=== PATIENT | male | born 1965 | race Hispanic/Latino ===

== ENCOUNTER 2017-09-06 09:50 | Day surgery (SDC) | payer BC ==
[2017-08-30 13:20] VITALS: BMI 27.3
[2017-09-06 10:54] LABS: BASO # 0.06 K/mm3 (0.0-2.0); BASO % 0.8 % (0.0-3.0); EOS # 0.2 (0.0-0.7); EOS % 2.8 % (1.5-5.0); GRAN # 5.26 (1.4-6.5); GRAN % 68.1 % (50.0-68.0); LYMPH # 1.7 (1.2-3.4); LYMPH % 22.5 % (22.0-35.0); MEAN CELL VOLUME 89.7 fl (80.0-105.0); MEAN CORPUSCULAR HEMOGLOBIN 32.1 pg (25.0-35.0); MEAN CORPUSCULAR HGB CONC 35.7 g/dl (31.0-37.0); MEAN PLATELET VOLUME 10.9 fl (7.0-11.0); MONO # 0.5 (0.1-0.6); MONO % 5.8 % (1.0-6.0); RED CELL DISTRIBUTION WIDTH 12.8 % (11.5-14.5); WHITE BLOOD COUNT 7.7 10^3/ul (4.5-11.0)
[2017-09-06 11:03] LABS: INR 1.06 (0.93-1.08); PARTIAL THROMBOPLASTIN TIME 27.9 Seconds (23.7-30.8)
[2017-09-06 11:10] LABS: ALB/GLOB RATIO 1.7 (1.1-1.8); ALKALINE PHOSPHATASE 115 U/L (38-126); ALT/SGPT 41 U/L (7-56); AMYLASE 82 U/L (35-125); AST/SGOT 29 U/L (17-59); BILIRUBIN,TOTAL 0.9 mg/dL (0.2-1.3); BLOOD UREA NITROGEN 11 mg/dL (7-21); CALCIUM 9.3 mg/dL (8.4-10.5); CARBON DIOXIDE 23 mmol/L (21-33); CHLORIDE 106 mmol/L (98-107); GFR AFRICAN-AMERICAN > 60; GLUCOSE,RANDOM 102 mg/dL (70-110); LIPASE 124 U/L (23-300); POTASSIUM 3.9 mmol/L (3.6-5.0); SODIUM 142 mmol/L (132-148); TOTAL PROTEIN 7.5 g/dL (5.8-8.3)
[2017-09-06] MEDS ORDERED: Propofol 10 mg/ml Inj (20 ML) ONE ×2 (12:33→13:16)
[2017-09-06] MEDS ORDERED: Midazolam 2 MG/2 ML VIAL ONE (12:33)
[2017-09-06] MEDS ORDERED: Phenylephrine 10 mg/ml Inj ONE (13:07)
[2017-09-06] MEDS ORDERED: Sodium Chloride 0.9% 1,000 ML IV SCH (13:45)
[2017-09-06 14:25] VITALS: BP 119/62; PULSE 76; RESP 18; TEMP 97.8; O2SAT 99
== END 2017-09-06 15:15 | disposition home or self-care (01) ==
LOC: ENDO 09:50
PROVIDERS: ATTEND Internal Medicine Gastroenterology
DX: K29.50 Unspecified chronic gastritis without bleeding (principal); K64.8 Other hemorrhoids; Z85.030 Personal history of malignant carcinoid tumor of large intestine; Z80.0 Family history of malignant neoplasm of digestive organs
CPT/HCPCS: 36415; 43237; 43239; 45330; 80053; 82150; 82977; 83690; 85025; 85610; 85730; 88305; 88342; J2250; J2370; J2704; J3010; J7030; J7040 ×2

== ENCOUNTER 2017-09-26 07:29 | Inpatient (IN) | payer BC ==
[2017-08-30 13:20] VITALS: BMI 27.3
[2017-09-26 08:06] LABS: BASO # 0.06 K/mm3 (0.0-2.0); BASO % 0.8 % (0.0-3.0); EOS # 0.4 (0.0-0.7); GRAN # 4.65 (1.4-6.5); HEMATOCRIT 43.8 % (42.0-52.0); LYMPH # 2.2 (1.2-3.4); MEAN CELL VOLUME 90.3 fl (80.0-105.0); MEAN CORPUSCULAR HEMOGLOBIN 32.6 pg (25.0-35.0); MEAN CORPUSCULAR HGB CONC 36.1 g/dl (31.0-37.0); MEAN PLATELET VOLUME 9.9 fl (7.0-11.0); MONO # 0.6 (0.1-0.6); MONO % 7.2 % (1.0-6.0); RED CELL DISTRIBUTION WIDTH 12.8 % (11.5-14.5); WHITE BLOOD COUNT 7.9 10^3/ul (4.5-11.0)
[2017-09-26 08:14] LABS: BLOOD UREA NITROGEN 11 mg/dL (7-21); CALCIUM 9.8 mg/dL (8.4-10.5); CARBON DIOXIDE 22 mmol/L (21-33); CHLORIDE 107 mmol/L (98-107); GFR AFRICAN-AMERICAN > 60; GLUCOSE,RANDOM 100 mg/dL (70-110); POTASSIUM 4.5 mmol/L (3.6-5.0); SODIUM 143 mmol/L (132-148)
[2017-09-26 08:16] LABS: INR 1.16 (0.93-1.08); PARTIAL THROMBOPLASTIN TIME 29.2 Seconds (25.1-36.5)
[2017-09-26] MEDS ORDERED: Bupivacaine 0.5% Inj(30mL) ONE (10:35)
[2017-09-26] MEDS ORDERED: Propofol 10 mg/ml Inj (20 ML) ONE (10:36)
[2017-09-26] MEDS ORDERED: Midazolam 2 MG/2 ML VIAL ONE (10:37)
[2017-09-26] MEDS ORDERED: metroNIDAZOLE IV 500 mg/100 ml 500 MG/100 ML BAG ONE (11:21)
[2017-09-26] MEDS ORDERED: Sevoflurane - Inhalation Anesthetic Liq (250 ml) ONE (11:30)
[2017-09-26] MEDS ORDERED: Morphine 1 mg/ml preservative-free Inj(Duramorph) ONE (12:33)
[2017-09-26] MEDS ORDERED: Neostigmine Methylsulfate 3mg/3ml Syringe IV ONE (13:57)
[2017-09-26] MEDS ORDERED: Glycopyrrolate 0.2 mg/ml (2ml vial) ONE (13:57)
--- NOTE | 2017-09-26 14:51 | PCM.SURG1 ---
<Carlos Luna - Last Filed: 09/26/17 14:47> Surgeon's Initial Post Op Note - Surgeon's Notes Surgeon: Dr. Irving Subscription Crew Leader: Carlos Luna PGY2, Farhan PGY1 Type of Anesthesia: General Endo Pre-Operative Diagnosis: Sigmoid carcinoid Operative Findings: Tattooed sigmoid Post-Operative Diagnosis: Same Operation Performed: Hand assisted laparoscopic sigmoidectomy Specimen/Specimens Removed: sigmoid colon Estimated Blood Loss: EBL {In ML}: 50 Blood Products Given: N/A Drains Used: Rafael Post-Op Condition: Good Date of Surgery/Procedure: 09/26/17 Time of Surgery/Procedure: 14:51 <Wallace Irving - Last Filed: 09/29/17 00:01> Surgeon's Initial Post Op Note - Surgeon's Notes Operation Performed: Laparoscopic Low anterior rectosigmoid resection. Splenic Flexure mobilization Specimen/Specimens Removed: rectosigmoid
[2017-09-26] MEDS ORDERED: Lactated Ringer's 1,000 ML IV SCH (15:00)
[2017-09-26] MEDS: HYDROmorphone 0.5 mg/0.5 ml ISec IVP PRN ×2 (15:15→15:30)
[2017-09-26] MEDS ORDERED: HYDROmorphone 0.5 mg/0.5 ml ISec ONE (15:17)
[2017-09-26] MEDS ORDERED: cefTRIAXone 1 gm 1 GM/100 ML BAG IVPB SCH (17:00)
[2017-09-26] MEDS: Lactated Ringer's 1,000 ML IV SCH (18:19)
[2017-09-26] MEDS ORDERED: Pneumococcal 23-Valent Vaccine IM ONE (21:30)
[2017-09-26] MEDS ORDERED: Influenza Vaccine 60 mcg/0.5 mL SYR (4YR UP) IM ONE (21:30)
[2017-09-26] MEDS: HYDROmorphone 1 mg/ml ISec IVP PRN (22:48)
[2017-09-26] MEDS: cefTRIAXone 1 gm 1 GM/100 ML BAG IVPB SCH (23:21)
[2017-09-27] MEDS: HYDROmorphone 1 mg/ml ISec IVP PRN ×3 (05:18→22:05)
[2017-09-27 06:25] LABS: GRAN # 11.55 (1.4-6.5); HEMATOCRIT 35.8 % (42.0-52.0); LYMPH # 0.7 (1.2-3.4); LYMPH % 5.8 % (22.0-35.0); MEAN CELL VOLUME 89.9 fl (80.0-105.0); MEAN CORPUSCULAR HEMOGLOBIN 31.7 pg (25.0-35.0); MEAN CORPUSCULAR HGB CONC 35.2 g/dl (31.0-37.0); MEAN PLATELET VOLUME 9.8 fl (7.0-11.0); MONO # 0.4 (0.1-0.6); MONO % 3.2 % (1.0-6.0); PLATELET COUNT 258 10^3/uL (120.0-450.0); RED CELL DISTRIBUTION WIDTH 12.8 % (11.5-14.5); WHITE BLOOD COUNT 12.7 10^3/ul (4.5-11.0)
[2017-09-27 06:45] LABS: ALB/GLOB RATIO 1.6 (1.1-1.8); ALKALINE PHOSPHATASE 74 U/L (38-126); ALT/SGPT 50 U/L (7-56); AST/SGOT 26 U/L (17-59); BILIRUBIN,TOTAL 0.5 mg/dL (0.2-1.3); BLOOD UREA NITROGEN 11 mg/dL (7-21); CALCIUM 8.8 mg/dL (8.4-10.5); CARBON DIOXIDE 24 mmol/L (21-33); CHLORIDE 105 mmol/L (95-110); GFR AFRICAN-AMERICAN > 60; GLUCOSE,RANDOM 111 mg/dL (70-110); POTASSIUM 4.1 mmol/L (3.6-5.0); SODIUM 138 mmol/L (132-148); TOTAL PROTEIN 5.9 g/dL (5.8-8.3)
[2017-09-27 06:53] LABS: BAND 5 % (0-2); NEUTROPHIL 90 % (50.0-70.0); PLATELET ESTIMATE NORMAL (NORMAL)
--- NOTE | 2017-09-27 07:43 | CP.PCM.PN ---
Subjective - Date & Time of Evaluation Date of Evaluation: 09/27/17 Time of Evaluation: 07:37 - Subjective Subjective: Surgery PT s&e. underwent surgery yesterday. Tolerated it well. Denies F/C?N/V/D/CP/ SOB. Using IS. Objective - Vital Signs/Intake and Output Vital Signs (last 24 hours): Temp Pulse Resp BP Pulse Ox 98.6 F 95 H 16 115/67 100 09/26/17 21:14 09/26/17 21:14 09/26/17 21:14 09/26/17 21:14 09/26/17 16:32 Intake and Output: 09/27/17 09/27/17 06:59 18:59 Intake Total 0 Output Total 390 Balance -390 - Medications Medications: Current Medications Fentanyl (Fentanyl) 25 mcg IV Q5M PRN PRN Reason: Pain, moderate (4-7) Heparin Sodium (Porcine) (Heparin) 5,000 units SC Q12 ARIEL PRN Reason: Protocol Last Admin: 09/26/17 22:25 Dose: 5,000 units Hydromorphone HCl (Dilaudid) 1 mg IVP Q4H PRN PRN Reason: Pain, severe (8-10) Last Admin: 09/27/17 05:18 Dose: 1 mg Lactated Ringer's (Lactated Ringer's) 1,000 mls @ 100 mls/hr IV .Q10H [facility] Last Admin: 09/26/17 18:19 Dose: 100 mls/hr Ceftriaxone Sodium (Rocephin 1 Gram Ivpb) 1 gm in 100 mls @ 100 mls/hr IVPB 1130,2330 [facility] PRN Reason: Protocol Stop: 09/27/17 12:29 Last Admin: 09/26/17 23:21 Dose: 100 mls/hr Pantoprazole Sodium (Protonix Inj) 40 mg IVP DAILY [facility] Valsartan (Diovan) 320 mg PO DAILY [facility] - Labs Labs: 09/27/17 06:00 09/27/17 06:00 PT 12.8 SECONDS (9.4-12.5) H 09/26/17 08:00 INR 1.16 (0.93-1.08) H 09/26/17 08:00 APTT 29.2 Seconds (25.1-36.5) 09/26/17 08:00 - Constitutional Appears: No Acute Distress - Head Exam Head Exam: ATRAUMATIC, NORMAL INSPECTION, NORMOCEPHALIC - Eye Exam Eye Exam: EOMI, Normal appearance, PERRL Pupil Exam: NORMAL ACCOMODATION, PERRL - ENT Exam ENT Exam: Mucous Membranes Moist, Normal Exam - Neck Exam Neck Exam: Full ROM, Normal Inspection. absent: Lymphadenopathy - Respiratory Exam Respiratory Exam: Clear to Ausculation Bilateral, NORMAL BREATHING PATTERN - Cardiovascular Exam Cardiovascular Exam: REGULAR RHYTHM, +S1, +S2. absent: Murmur - GI/Abdominal Exam GI & Abdominal Exam: Soft, Tenderness, Normal Bowel Sounds. absent: Distended, Firm, Rigid, Hyperactive Bowel Sounds - Exam Exam: NORMAL INSPECTION (Villar in place. ) - Extremities Exam Extremities Exam: Full ROM, Normal Capillary Refill, Normal Inspection. absent : Joint Swelling, Pedal Edema - Back Exam Back Exam: NORMAL INSPECTION - Neurological Exam Neurological Exam: Alert, Awake, CN II-XII Intact, Normal Gait, Oriented x3 - Psychiatric Exam Psychiatric exam: Normal Affect, Normal Mood - Skin Skin Exam: Dry, Intact, Normal Color, Warm. absent: Erythema Assessment and Plan - Assessment and Plan (Free Text) Assessment: POD 1 s/p Hand assisted laparoscopic sigmoidectomy with anastomosis Villar 1L NGT 50cc -Advance diet to CLD -Monitor bowel function -IVF -NGT/ Villar DC -VS -Pain /nausea control -DVT ppx / GI ppx -Encourage ambulation /IS/ OOB CLAUDIA Irving
[2017-09-27] MEDS ORDERED: TraMADol/Apap 37.5/325 mg Tab PO PRN (07:45)
[2017-09-27] MEDS: cefTRIAXone 1 gm 1 GM/100 ML BAG IVPB SCH (12:21)
[2017-09-27] MEDS: Lactated Ringer's 1,000 ML IV SCH (12:24)
[2017-09-27] MEDS ORDERED: Sodium Chloride 0.9% 1,000 ML IV STA ×2 (13:39→17:01)
[2017-09-27 17:03] VITALS: RESP 20
--- NOTE | 2017-09-27 21:45 | CP.PCM.PN ---
Subjective - Date & Time of Evaluation Date of Evaluation: 09/27/17 Time of Evaluation: 21:44 - Subjective Subjective: F 16 Coude catheter was inserted without difficulty. Objective - Vital Signs/Intake and Output Vital Signs (last 24 hours): Temp Pulse Resp BP Pulse Ox 97.7 F 71 20 134/74 98 09/27/17 16:00 09/27/17 16:00 09/27/17 16:00 09/27/17 16:00 09/27/17 16:00 Intake and Output: 09/27/17 09/28/17 18:59 06:59 Intake Total 840 Output Total 30 Balance 840 -30 - Medications Medications: Current Medications Acetaminophen (Tylenol 325mg Tab) 650 mg PO Q4 PRN PRN Reason: Fever >100.4 F Heparin Sodium (Porcine) (Heparin) 5,000 units SC Q12 ARIEL PRN Reason: Protocol Last Admin: 09/27/17 09:23 Dose: 5,000 units Hydromorphone HCl (Dilaudid) 1 mg IVP Q4H PRN PRN Reason: Pain, severe (8-10) Last Admin: 09/27/17 15:58 Dose: 1 mg Lactated Ringer's (Lactated Ringer's) 1,000 mls @ 100 mls/hr IV .Q10H [facility] Last Admin: 09/27/17 12:24 Dose: 100 mls/hr Pantoprazole Sodium (Protonix Inj) 40 mg IVP DAILY [facility] Last Admin: 09/27/17 09:23 Dose: 40 mg Tramadol/Acetaminophen (Ultracet 37.5/325 Mg) 2 tab PO Q4H PRN PRN Reason: Pain, moderate (4-7) Valsartan (Diovan) 320 mg PO DAILY [facility] Last Admin: 09/27/17 09:23 Dose: 320 mg - Labs Labs: 09/27/17 06:00 09/27/17 06:00 PT 12.8 SECONDS (9.4-12.5) H 09/26/17 08:00 INR 1.16 (0.93-1.08) H 09/26/17 08:00 APTT 29.2 Seconds (25.1-36.5) 09/26/17 08:00
[2017-09-27 23:37] LABS: ALB/GLOB RATIO 1.5 (1.1-1.8); ALKALINE PHOSPHATASE 69 U/L (38-126); ALT/SGPT 47 U/L (7-56); AST/SGOT 27 U/L (17-59); BILIRUBIN,TOTAL 0.6 mg/dL (0.2-1.3); BLOOD UREA NITROGEN 14 mg/dL (7-21); CARBON DIOXIDE 28 mmol/L (21-33); CHLORIDE 105 mmol/L (95-110); GFR AFRICAN-AMERICAN > 60; GLUCOSE,RANDOM 102 mg/dL (70-110); HEMATOCRIT 33.3 % (42.0-52.0); MEAN CORPUSCULAR HEMOGLOBIN 32.2 pg (25.0-35.0); MEAN CORPUSCULAR HGB CONC 35.7 g/dl (31.0-37.0); MEAN PLATELET VOLUME 9.9 fl (7.0-11.0); POTASSIUM 4.1 mmol/L (3.6-5.0); RED CELL DISTRIBUTION WIDTH 13.3 % (11.5-14.5); SODIUM 139 mmol/L (132-148); TOTAL PROTEIN 5.9 g/dL (5.8-8.3); WHITE BLOOD COUNT 13.6 10^3/ul (4.5-11.0)
[2017-09-28 06:18] LABS: BASO # 0.02 K/mm3 (0.0-2.0); BASO % 0.2 % (0.0-3.0); EOS % 0.1 % (1.5-5.0); GRAN # 10.14 (1.4-6.5); GRAN % 76.2 % (50.0-68.0); HEMATOCRIT 35.3 % (42.0-52.0); LYMPH % 14.9 % (22.0-35.0); MEAN CORPUSCULAR HEMOGLOBIN 32.5 pg (25.0-35.0); MEAN CORPUSCULAR HGB CONC 35.7 g/dl (31.0-37.0); MEAN PLATELET VOLUME 10.5 fl (7.0-11.0); MONO # 1.2 (0.1-0.6); MONO % 8.6 % (1.0-6.0); RED CELL DISTRIBUTION WIDTH 13.2 % (11.5-14.5); WHITE BLOOD COUNT 13.3 10^3/ul (4.5-11.0)
--- NOTE | 2017-09-28 07:15 | OP ---
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 PROCEDURE PERFORMED: 1. Laparoscopic low anterior resection of the rectosigmoid. 2. Laparoscopic mobilization of the splenic flexure. SURGEON: Wallace Irving MD WEIGHT ENGINEER: Dr. Carlos Luna. TYPE OF ANESTHESIA: General endotracheal anesthesia. ANESTHESIA ADMINISTERED BY: Dr. Oakes. ESTIMATED BLOOD LOSS: Minimal. SPECIMEN: Rectosigmoid colon. INDICATIONS: Patient is a 52-year-old male with history of carcinoid tumor, which was partially resected with endoscopy and was unable to be resected via the EMR and therefore decision was made to proceed with resection of the colon. Patient was scheduled for laparoscopic distal sigmoid colon resection. DESCRIPTION OF PROCEDURE: Patient was brought to the operating room, placed on operating table in supine position. The patient was connected to EKG, blood pressure, and pulse oximetry monitor. The patient then underwent general endotracheal anesthesia and was prepped and draped in the usual sterile fashion. First, a standard time-out procedure took place, and everybody in the room agreed as to the patient's identity, diagnoses, and procedure to be performed. Once completely draped in the lithotomy position, first a rigid sigmoidoscopy was performed, and area of the interest where the Yadira ink was used for marking of the lesion was noted and appeared to be at about 15 cm from the anal verge. At this point, I rescrubbed and proceeded with the surgery. First, two towel clips were used in order to elevate anterior abdominal wall, and a vertical small incision was made for the 12-mm port insertion. First, the Veress needle was inserted through that incision and pneumoperitoneum was obtained, and a 12-mm trocar inserted into the abdominal cavity. Careful evaluation of the abdominal cavity revealed the presence of slightly distended sigmoid colon with some redundancy as well as omentum covering it. I then proceeded with placing a second trocar into the right lower quadrant 2 cm medial and superior to the superior iliac spine. That was a 12-mm trocar, and then a 5-mm trocar in the right upper quadrant just below the costal margin. Once this was done, I then proceeded with carefully placing the patient in the Trendelenburg and removing the omentum all the way into the upper abdomen. The patient was also tilted to the right in order to push the small bowel away from the pelvis and the area of operation. Once this was done, I then proceeded with elevating the sigmoid colon and found the area of the sacral promontory. The right common iliac artery was noted under the peritoneum and ureter crossing it laterally. Similar finding was noted on the left side of the pelvic brim. I then proceeded with scoring the mesentery of the sigmoid colon and carefully dissected it along the avascular plane and elevated inferior mesenteric artery. That plane was then followed down to the pelvis in the retrorectal space carefully leaving the nerve bundles intact. Once this portion of the rectosigmoid was mobilized, I then proceeded with transecting the peritoneum towards the anterior surface of the rectum and carefully mobilized that portion of the rectum. I then proceeded with transecting the inferior mesenteric artery by clipping it proximally and distally and transecting it with a Harmonic instrument. Once this was done, I then proceeded with further mobilizing the sigmoid mesentery more proximally in order to gain length. Next, the rectal mesentery was transected using Harmonic scalpel and the rectum itself was exposed circumferentially. The RAMYA stapler was used now to transect the proximal rectum, and once this was done, the specimen was elevated towards the anterior abdominal wall. The area of the proximal transection appeared to be slightly on the stretch for anastomosis, and therefore, proceeded with mobilization of the splenic flexure. Once this was mobilized adequately for gaining adequate length, I then proceeded with making a muscle splitting incision in the left lower quadrant and placed a wound protector and pulled out the rectosigmoid and sigmoid colon through that opening. Once the mesentery proximal to the mid sigmoid colon was cleaned out, I then placed auto Pursestring clamp on the sigmoid colon and transected the specimen distally. This was sent as a specimen with marking of the Yadira ink around the lesion. The lesion itself appeared to be about 4 cm proximal to the distal margin. Now, the colon was opened, and sizers were used up to 33 mm Endo-RAMYA size, and therefore a 33 Endo-RAMYA stapler was used for anastomosis. First, the anvil was placed into the proximal sigmoid colon, and the previously applied Pursestring was ligated tightly on the anvil. The bowel was then returned back into the abdominal cavity, and the muscle splitting incision was closed using #1 PDS and 3-0 Vicryl for the subcutaneous tissues. The skin was closed using 4-0 Monocryl. The insufflation was obtained again, and carefully the proximal portion of the sigmoid with the anvil in it was brought down to the pelvis and appeared to be without any stretch reaching the distal rectum. Now, I placed Endo-RAMYA stapler through the rectum and carefully advanced to the area of the transection. The spike was brought out through the rectum at a corner of the staple line and connected to the anvil. The Endo-RAMYA was then *------*to the maximum green level and fired. Once removed from the rectum, I then checked the rings, which were both intact and sent as a specimen. The anastomosis was now covered with saline and clamped, and air was insufflated through the rectum showing no evidence of any air leak from the anastomosis. The area was copiously irrigated, and all the irrigant fluid was suctioned out. A EVE drain was placed through the 5 mm port and brought down to the pelvis around the area of anastomosis. The 5-mm port was removed, and EVE drain was sutured to the skin using 2-0 Dacron stitch. The pneumoperitoneum was now completely released. Trocar was removed, and the wound was closed using 0 Vicryl for the trocar site fascia, 3-0 Vicryl for subcutaneous tissue, and 4-0 Monocryl for skin. Sterile Dermabond dressings were applied to all the wounds. The patient tolerated the procedure well and there were no complications. The patient was awakened and transferred to the recovery room for further observation. Wallace Irving MD
[2017-09-28 07:39] LABS: ALB/GLOB RATIO 1.5 (1.1-1.8); ALKALINE PHOSPHATASE 69 U/L (38-126); ALT/SGPT 37 U/L (7-56); AST/SGOT 31 U/L (17-59); BILIRUBIN,TOTAL 0.7 mg/dL (0.2-1.3); BLOOD UREA NITROGEN 12 mg/dL (7-21); CALCIUM 8.8 mg/dL (8.4-10.5); CARBON DIOXIDE 32 mmol/L (21-33); CHLORIDE 101 mmol/L (98-107); GFR AFRICAN-AMERICAN > 60; GLUCOSE,RANDOM 110 mg/dL (70-110); POTASSIUM 3.3 mmol/L (3.6-5.0); SODIUM 139 mmol/L (132-148); TOTAL PROTEIN 5.9 g/dL (5.8-8.3)
[2017-09-28] MEDS ORDERED: Potassium Chloride 20 mEq ER Tab PO STA (09:25)
[2017-09-28] MEDS: HYDROmorphone 1 mg/ml ISec IVP PRN (10:03)
--- NOTE | 2017-09-28 12:05 | CP.PCM.PN ---
Subjective - Date & Time of Evaluation Date of Evaluation: 09/28/17 Time of Evaluation: 11:45 - Subjective Subjective: PGY1 General Surgery Note for Dr. Irving Patient seen and evaluated this morning. Patient states he is experiencing some soreness in his abdomen but his pain has been well controlled. Patient attempted a voiding trial but states he was unable to urinate. He had to have a viramontes re-inserted last night. Patient states he has been able to get up and walk. Patient has been tolerating his diet. Patient has not passed flatus or had a BM. Denies fevers, chills, nausea, vomiting, shortness of breath or chest pain. Objective - Vital Signs/Intake and Output Vital Signs (last 24 hours): Temp Pulse Resp BP Pulse Ox 98.3 F 81 20 124/74 96 09/28/17 08:31 09/28/17 08:31 09/28/17 08:31 09/28/17 08:31 09/28/17 08:31 Intake and Output: 09/28/17 09/28/17 06:59 18:59 Intake Total 600 Output Total 2985 Balance -2385 - Medications Medications: Current Medications Acetaminophen (Tylenol 325mg Tab) 650 mg PO Q4 PRN PRN Reason: Fever >100.4 F Heparin Sodium (Porcine) (Heparin) 5,000 units SC Q12 ARIEL PRN Reason: Protocol Last Admin: 09/28/17 10:03 Dose: 5,000 units Hydromorphone HCl (Dilaudid) 1 mg IVP Q4H PRN PRN Reason: Pain, severe (8-10) Last Admin: 09/28/17 10:03 Dose: 1 mg Potassium Chloride 20 meq/ (Dextrose) 1,010 mls @ 125 mls/hr IV .Q8H5M [facility] Last Admin: 09/28/17 08:38 Dose: 125 mls/hr Pantoprazole Sodium (Protonix Inj) 40 mg IVP DAILY [facility] Last Admin: 09/28/17 10:03 Dose: 40 mg Tramadol/Acetaminophen (Ultracet 37.5/325 Mg) 2 tab PO Q4H PRN PRN Reason: Pain, moderate (4-7) Valsartan (Diovan) 320 mg PO DAILY [facility] Last Admin: 09/28/17 10:02 Dose: 320 mg - Labs Labs: 09/28/17 05:30 09/28/17 05:20 PT 12.8 SECONDS (9.4-12.5) H 09/26/17 08:00 INR 1.16 (0.93-1.08) H 09/26/17 08:00 APTT 29.2 Seconds (25.1-36.5) 09/26/17 08:00 - Constitutional Appears: No Acute Distress - Head Exam Head Exam: ATRAUMATIC, NORMOCEPHALIC - Eye Exam Eye Exam: EOMI, Normal appearance. absent: Scleral icterus - ENT Exam ENT Exam: Mucous Membranes Moist - Respiratory Exam Respiratory Exam: NORMAL BREATHING PATTERN. absent: Accessory Muscle Use, Respiratory Distress - Cardiovascular Exam Cardiovascular Exam: REGULAR RHYTHM - GI/Abdominal Exam GI & Abdominal Exam: Soft, Tenderness, Normal Bowel Sounds. absent: Distended, Firm, Guarding, Rigid Additional comments: RLQ drain in place. draining 30mL serosanguinous fluid over previous 12 hours - Exam Additional comments: Viramontes cath in place. - Extremities Exam Extremities Exam: Normal Inspection. absent: Calf Tenderness, Pedal Edema - Neurological Exam Neurological Exam: Alert, Awake, Oriented x3 - Psychiatric Exam Psychiatric exam: Normal Affect, Normal Mood - Skin Skin Exam: Dry, Warm Additional comments: surgical incisions healing well. No signs of infection. Assessment and Plan - Assessment and Plan (Free Text) Assessment: POD 2 s/p Hand assisted laparoscopic sigmoidectomy with anastomosis Plan: - Diet advanced to full liquid diet - Monitor for return of bowel function - IVF - Viramontes in place until further notice - Strict In's and Out's - Pain/nausea control - DVT ppx / GI ppx - Encourage ambulation /IS/OOB Case discussed with Dr. Maria Fernanda Gordon Farhan PGY1
[2017-09-28 16:54] VITALS: O2SAT 95
[2017-09-29 06:19] LABS: BASO # 0.02 K/mm3 (0.0-2.0); BASO % 0.2 % (0.0-3.0); EOS # 0.1 (0.0-0.7); EOS % 1.4 % (1.5-5.0); GRAN # 6.07 (1.4-6.5); GRAN % 71.2 % (50.0-68.0); LYMPH # 1.6 (1.2-3.4); LYMPH % 19.2 % (22.0-35.0); MEAN CELL VOLUME 90.4 fl (80.0-105.0); MEAN CORPUSCULAR HEMOGLOBIN 31.8 pg (25.0-35.0); MEAN CORPUSCULAR HGB CONC 35.1 g/dl (31.0-37.0); MONO # 0.7 (0.1-0.6); RED CELL DISTRIBUTION WIDTH 13.2 % (11.5-14.5); WHITE BLOOD COUNT 8.5 10^3/ul (4.5-11.0)
[2017-09-29 06:42] LABS: ALB/GLOB RATIO 1.4 (1.1-1.8); ALKALINE PHOSPHATASE 71 U/L (38-126); ALT/SGPT 46 U/L (7-56); AST/SGOT 29 U/L (17-59); BLOOD UREA NITROGEN 7 mg/dL (7-21); CALCIUM 8.6 mg/dL (8.4-10.5); CARBON DIOXIDE 28 mmol/L (21-33); CHLORIDE 104 mmol/L (95-110); GFR AFRICAN-AMERICAN > 60; GLUCOSE,RANDOM 102 mg/dL (70-110); POTASSIUM 3.6 mmol/L (3.6-5.0); SODIUM 139 mmol/L (132-148); TOTAL PROTEIN 5.8 g/dL (5.8-8.3)
[2017-09-29 08:42] VITALS: BP 121/73; PULSE 79; TEMP 98.4
--- NOTE | 2017-09-29 09:09 | CP.PCM.PN ---
Subjective - Date & Time of Evaluation Date of Evaluation: 09/29/17 Time of Evaluation: 08:53 - Subjective Subjective: PGY1 General Surgery Note for Dr. Irving Patient seen and examined at bedside this morning. No acute events overnight. Patient has had good urine output overnight. He states his pain has been very well controlled. Patient reports being able to get up out of bed and walk. He reports that he has started to pass flatus but has not yet had a bowel movement. Patient is tolerating his diet. Denies fevers, chills, nausea, vomiting, shortness of breath or chest pain. Objective - Vital Signs/Intake and Output Vital Signs (last 24 hours): Temp Pulse Resp BP Pulse Ox 98.4 F 79 20 121/73 95 09/29/17 08:41 09/29/17 08:41 09/29/17 08:41 09/29/17 08:41 09/29/17 08:41 Intake and Output: 09/29/17 09/29/17 06:59 18:59 Intake Total 480 240 Output Total 1275 810 Balance -795 -570 - Medications Medications: Current Medications Acetaminophen (Tylenol 325mg Tab) 650 mg PO Q4 PRN PRN Reason: Fever >100.4 F Heparin Sodium (Porcine) (Heparin) 5,000 units SC Q12 ARIEL PRN Reason: Protocol Last Admin: 09/28/17 21:17 Dose: 5,000 units Hydromorphone HCl (Dilaudid) 1 mg IVP Q4H PRN PRN Reason: Pain, severe (8-10) Last Admin: 09/28/17 10:03 Dose: 1 mg Potassium Chloride 20 meq/ (Dextrose) 1,010 mls @ 75 mls/hr IV .[id number] [facility] Last Admin: 09/28/17 16:11 Dose: 75 mls/hr Pantoprazole Sodium (Protonix Inj) 40 mg IVP DAILY [facility] Last Admin: 09/28/17 10:03 Dose: 40 mg Tramadol/Acetaminophen (Ultracet 37.5/325 Mg) 2 tab PO Q4H PRN PRN Reason: Pain, moderate (4-7) Last Admin: 09/28/17 18:43 Dose: 2 tab Valsartan (Diovan) 320 mg PO DAILY [facility] Last Admin: 09/28/17 10:02 Dose: 320 mg - Labs Labs: 09/29/17 05:50 09/29/17 05:50 PT 12.8 SECONDS (9.4-12.5) H 09/26/17 08:00 INR 1.16 (0.93-1.08) H 09/26/17 08:00 APTT 29.2 Seconds (25.1-36.5) 09/26/17 08:00 - Constitutional Appears: Non-toxic, No Acute Distress - Head Exam Head Exam: ATRAUMATIC, NORMOCEPHALIC - Eye Exam Eye Exam: EOMI, Normal appearance. absent: Scleral icterus - ENT Exam ENT Exam: Mucous Membranes Moist - Respiratory Exam Respiratory Exam: NORMAL BREATHING PATTERN. absent: Accessory Muscle Use, Respiratory Distress - Cardiovascular Exam Cardiovascular Exam: REGULAR RHYTHM - GI/Abdominal Exam GI & Abdominal Exam: Soft, Tenderness (mild). absent: Distended, Firm, Guarding , Rigid Additional comments: RLQ drain in place. draining 10mL serosanguinous fluid over previous 12 hours - Exam Additional comments: viramontes in place. draining 800mL over past 12 hours - Extremities Exam Extremities Exam: absent: Calf Tenderness, Pedal Edema Additional comments: AE hoses thigh high in place. - Neurological Exam Neurological Exam: Alert, Awake, Oriented x3 - Psychiatric Exam Psychiatric exam: Normal Affect, Normal Mood - Skin Skin Exam: Dry, Normal Color, Warm Additional comments: surgical incisions healing well. No signs of infection. Assessment and Plan - Assessment and Plan (Free Text) Assessment: POD 3 s/p Hand assisted laparoscopic sigmoidectomy with anastomosis Plan: - Full liquid diet for breakfast, will monitor and advance as tolerated. - Return of bowel function, monitor for BM - IVF - Viramontes in place, will wait for Dr. Irving to DC - Strict In's and Out's - Pain/nausea control - DVT ppx / GI ppx - Encourage ambulation/IS/OOB Will discuss case with Dr. Maria Fernanda Gordon Farhan PGY1
--- NOTE | 2017-09-29 16:13 | CP.PCM.DIS ---
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 Status: Acute Priority: High Hospital Course - Lab Results Lab Results: Micro Results 09/26/17 08:20 Naris MRSA Culture (Admit) - Final MRSA NOT DETECTED Most Recent Lab Values WBC 8.5 10^3/ul (4.5-11.0) D 09/29/17 05:50 RBC 3.87 10^6/uL (3.5-6.1) 09/29/17 05:50 Hgb 12.3 g/dL (14.0-18.0) L 09/29/17 05:50 Hct 35.0 % (42.0-52.0) L 09/29/17 05:50 MCV 90.4 fl (80.0-105.0) 09/29/17 05:50 MCH 31.8 pg (25.0-35.0) 09/29/17 05:50 MCHC 35.1 g/dl (31.0-37.0) 09/29/17 05:50 RDW 13.2 % (11.5-14.5) 09/29/17 05:50 Plt Count 232 10^3/uL (120.0-450.0) 09/29/17 05:50 MPV 10.0 fl (7.0-11.0) 09/29/17 05:50 Gran % 71.2 % (50.0-68.0) H 09/29/17 05:50 Lymph % (Auto) 19.2 % (22.0-35.0) L 09/29/17 05:50 Canadian % (Auto) 8.0 % (1.0-6.0) H 09/29/17 05:50 Eos % (Auto) 1.4 % (1.5-5.0) L 09/29/17 05:50 Baso % (Auto) 0.2 % (0.0-3.0) 09/29/17 05:50 Gran # 6.07 (1.4-6.5) 09/29/17 05:50 Lymph # 1.6 (1.2-3.4) 09/29/17 05:50 Canadian # 0.7 (0.1-0.6) H 09/29/17 05:50 Eos # 0.1 (0.0-0.7) 09/29/17 05:50 Baso # 0.02 K/mm3 (0.0-2.0) 09/29/17 05:50 Neutrophils % (Manual) 90 % (50.0-70.0) H 09/27/17 06:00 Band Neutrophils % 5 % (0-2) H 09/27/17 06:00 Lymphocytes % (Manual) 3 % (22.0-35.0) L 09/27/17 06:00 Monocytes % (Manual) 2 % (1.0-6.0) 09/27/17 06:00 Platelet Evaluation Normal (NORMAL) 09/27/17 06:00 PT 12.8 SECONDS (9.4-12.5) H 09/26/17 08:00 INR 1.16 (0.93-1.08) H 09/26/17 08:00 APTT 29.2 Seconds (25.1-36.5) 09/26/17 08:00 Sodium 139 mmol/L (132-148) 09/29/17 05:50 Potassium 3.6 mmol/L (3.6-5.0) 09/29/17 05:50 Chloride 104 mmol/L (95-110) 09/29/17 05:50 Carbon Dioxide 28 mmol/L (21-33) 09/29/17 05:50 Anion Gap 11 (10-20) 09/29/17 05:50 BUN 7 mg/dL (7-21) 09/29/17 05:50 Creatinine 0.7 mg/dL (0.8-1.5) L 09/29/17 05:50 Est GFR ( Amer) > 60 09/29/17 05:50 Est GFR (Non-Af Amer) > 60 09/29/17 05:50 Random Glucose 102 mg/dL (70-110) 09/29/17 05:50 Calcium 8.6 mg/dL (8.4-10.5) 09/29/17 05:50 Total Bilirubin 1.0 mg/dL (0.2-1.3) 09/29/17 05:50 AST 29 U/L (17-59) 09/29/17 05:50 ALT 46 U/L (7-56) 09/29/17 05:50 Alkaline Phosphatase 71 U/L (38-126) 09/29/17 05:50 Total Protein 5.8 g/dL (5.8-8.3) 09/29/17 05:50 Albumin 3.4 g/dL (3.0-4.8) 09/29/17 05:50 Globulin 2.4 gm/dL 09/29/17 05:50 Albumin/Globulin Ratio 1.4 (1.1-1.8) 09/29/17 05:50 Blood Type A POSITIVE 09/26/17 08:00 Blood Type Confirm A POSITIVE 09/26/17 09:18 Antibody Screen Negative 09/26/17 08:00 BBK History Checked No verified bt 09/26/17 08:00 - Hospital Course Hospital Course: Patient was admitted to the hospital on 09/26/17 for sigmoid colectomy due to 8mm polyp that was found to be carcinoid. The portion of the sigmoid was tattooed during colonoscopy. On 09/26/17, hand assisted laparoscopic low anterior sigmoid colectomy was performed by Dr. Irving. One vj was placed in the RLQ. The patient failed a voiding trial on 09/27 and needed to have a Villar re-inserted. The patient's pain was well controlled throughout his stay. Patient's diet was able to be advanced with no problems. He was able to tolerate a regular diet on date of discharge. On 09/29/17, patient had return of bowel function with passing flatus and having one loose but formed bowel movement. A voiding trial was attempted again which was successful. Patient was eager to return home to his family. Patient was discharged home on 09/29/17 with a prescription of Ultram for pain. Discharge instructions: Patient is to be discharged home per Dr. Ferreira. Patient is to follow up with Dr. Irving in his office within one week. Patient was given a prescription for Ultram (tramadol) for pain control. Patient is able to shower. He had one drain removed from his right lower abdomen today. He is to keep the dressing in place for 24 hours. After 24 hours, patient is to keep area clean but does not need to put a new dressing. No heavy lifting (anything greater than 10 pounds). If patient begins to experience any new or concerning symptoms, including but not limited to fevers, chills, nausea, vomiting, or uncontrollable bleeding, please call Dr. Irving or return to hospital Emergency Room. Discharge Medications: Ultram 50mg PO Q6H PRN for pain; dispense 20 tablets - Date & Time of H&P Date of H&P: 09/26/17 Time of H&P: 14:45 Discharge Exam - Head Exam Head Exam: ATRAUMATIC, NORMOCEPHALIC - Eye Exam Eye Exam: EOMI, Normal appearance. absent: Scleral icterus - ENT Exam ENT Exam: Mucous Membranes Moist - Neck Exam Neck exam: Full Rom - Respiratory Exam Respiratory Exam: NORMAL BREATHING PATTERN, UNREMARKABLE. absent: Accessory Muscle Use, Respiratory Distress - Cardiovascular Exam Cardiovascular Exam: REGULAR RHYTHM - GI/Abdominal Exam GI & Abdominal Exam: Soft, Tenderness (mild). absent: Distended, Firm, Guarding , Rigid Additional comments: Drain removed from RLQ. Dressing placed over incision. - Exam Additional comments: Villar removed in morning. Patient successful voiding trial. - Extremities Exam Extremities exam: normal inspection, pedal pulses present Additional comments: AE hoses thigh high in place. - Neurological Exam Neurological exam: Alert, Normal Gait, Oriented x3 - Psychiatric Exam Psychiatric exam: Normal Affect, Normal Mood - Skin Skin Exam: Dry, Warm Additional comments: surgical incisions healing well. No signs of infection. Discharge Plan - Follow Up Plan Condition: GOOD Disposition: HOME/ ROUTINE Additional Instructions: Patient is to be discharged home per Dr. Ferreira. Patient is to follow up with Dr. Irving in his office within one week. Patient was given a prescription for Ultram (tramadol) for pain control. Patient is able to shower. He had one drain removed from his right lower abdomen today. He is to keep the dressing in place for 24 hours. After 24 hours, patient is to keep area clean but does not need to put a new dressing. No heavy lifting (anything greater than 10 pounds). If patient begins to experience any new or concerning symptoms, including but not limited to fevers, chills, nausea, vomiting, or uncontrollable bleeding, please call Dr. Irving or return to hospital Emergency Room. Discharge Medications: Ultram 50mg PO Q6H PRN for pain; dispense 20 tablets Referrals: Jameel Hernandez MD [Primary Care Provider] - Wallace Irving MD [Staff Provider] - Clinical Quality Measures - Date & Time of Discharge Summary Date of Discharge Summary: 09/29/17 Time of Discharge Summary: 16:31
== END 2017-09-29 17:30 | disposition home or self-care (01) | DRG 330 ==
LOC: SDS 07:29 → ERH 15:28 → 3RSO 16:55
PROVIDERS: ADMIT General Practice; ATTEND General Practice
PROC: 0DNL4ZZ Release Transverse Colon, Percutaneous Endoscopic Approach (ICD-10-PCS; 2017-09-26)
PROC: 0DJD8ZZ Inspection of Lower Intestinal Tract, Via Natural or Artificial Opening Endoscopic (ICD-10-PCS; 2017-09-26)
PROC: 0DTN4ZZ Resection of Sigmoid Colon, Percutaneous Endoscopic Approach (ICD-10-PCS; principal; 2017-09-26 09:30)
DX: C7A.025 Malignant carcinoid tumor of the sigmoid colon (principal); C7B.01 Secondary carcinoid tumors of distant lymph nodes